=== PATIENT | male | born 1955 | race Caucasian/White ===

== ENCOUNTER 2020-04-23 11:58 | Outpatient (CLI) | payer BC ==
--- NOTE | 2020-04-23 13:55 | MRI ---
MRI cervical spine noncontrast: 04/23/2020 HISTORY: 65-year-old male with cervical radiculopathy COMPARISON: Vertebral body heights are maintained. No high-grade disc space narrowing at any level. Cervical spin al cord is normal in size and signal. No major subluxation. No high-grade facet DJD at any level. Mild Modic type I endplate marrow edema at upper C5 vertebral body. No other significant bone marrow signal abnormality. C1-2: Normal C2-3: Essentially normal C3-4: Shallow central and right paracentral small disc protrusion. Mild central spinal canal stenosis . Moderate size right uncinate process osteophytes. Small left uncinate process osteophytes. Somewhat severe right neural foraminal stenosis. Mild to moderate left neural foraminal stenosis. C4-5: Central and bilateral paracentral moderate disc protrusion or disc-osteophyte complex slightly indents ventral surface of spinal cord. Moderate central spinal canal stenosis. Moderate size bilateral uncinate process osteophytes. Severe bilateral neural foraminal stenosis. C5-6: Broad-based disc protrusion or disc-osteophyte complex, asymmetrically larger than on the right than left abuts ventral surface of spinal cord. Moderate to severe central spinal canal stenosis. Moderate size bilateral uncinate process osteophytes. Severe right and moderate left neural foraminal stenosis. C6-7: Broad-based moderate sized disc herniation. Mild ligamentum flavum thickening. Severe central s simi canal stenosis. Moderate to large right and moderate left neural foraminal stenosis. Severe bilateral neural foraminal stenosis. C7-T1: No high-grade central spinal canal stenosis. Mild to moderate bilateral neural foraminal steno sis. IMPRESSION: 1.) Multilevel severe bilateral neural foraminal stenosis. 2) otherwise, the degree of cervical spondylosis is low-grade.
== END 2020-04-23 11:59 | disposition home or self-care (01) ==
LOC: BICMRI 11:58
PROVIDERS: ATTEND Family Medicine
DX: M47.22 Other spondylosis with radiculopathy, cervical region (principal); M48.02 Spinal stenosis, cervical region
CPT/HCPCS: 72141

== ENCOUNTER 2022-10-21 08:33 | Outpatient (CLI) | payer BC, MEDICARE ==
[2022-10-21 10:52] LABS: Anion Gap 14 mmol/L (10-20); BUN (Urea Nitrogen) 11 mg/dL (8.4-25.7); Calc. Creatinine Clearance 0 mL/min (70-130); Calcium 9.7 mg/dL (7.8-10.44); Carbon Dioxide 27 mmol/L (23-31); Chloride 93 mmol/L (98-107); Estimated GFR 95; Glucose 117 mg/dL (80-115); Potassium 4.3 mmol/L (3.5-5.1); Sodium 130 mmol/L (136-145)
== END 2022-10-21 08:34 | disposition home or self-care (01) ==
LOC: LABBT 08:33
PROVIDERS: ATTEND Neurological Surgery
DX: Z01.818 Encounter for other preprocedural examination (principal); M43.16 Spondylolisthesis, lumbar region; M47.26 Other spondylosis with radiculopathy, lumbar region
CPT/HCPCS: 80048; 93005; 93010

== ENCOUNTER 2022-10-24 06:17 | Day surgery (SDC) | payer BC, MEDICARE ==
[2022-10-21 09:26] VITALS: BMI 28.0
[2022-10-24] MEDS ORDERED: HYDROmorphone 0.5 MG/0.5 ML SYRINGE ONE ×2 (08:40→11:54)
[2022-10-24] MEDS ORDERED: fentaNYL PF 100 MCG/2 ML SYRINGE ONE ×3 (08:40→12:05)
[2022-10-24] MEDS ORDERED: Midazolam HCl 2 mg/2 ml Vial ONE (08:40)
[2022-10-24] MEDS ORDERED: Bupivacaine HCl 0.5%/Epinephrine 1:200,000/PF 30 ml Vial ONE (08:43)
[2022-10-24] MEDS ORDERED: Thrombin 5000 UNITS/5 ML VIAL ONE (08:43)
[2022-10-24] MEDS ORDERED: Sodium Chloride 0.9% 100 ML ONE ×2 (08:53→13:52)
[2022-10-24] MEDS ORDERED: CEFAZOLIN 2 GM VIAL ONE ×2 (08:53→13:52)
[2022-10-24] MEDS ORDERED: Dexamethasone 20 MG/5 ML VIAL ONE (09:01)
[2022-10-24] MEDS ORDERED: PROPOFOL 200 MG/20 ML VIAL ONE (09:01)
[2022-10-24] MEDS ORDERED: Rocuronium Bromide 10 MG/ML (10ML VIAL) ONE (09:01)
[2022-10-24] MEDS ORDERED: ePHEDrine Sulfate 50 MG/10 ML VIAL ONE (09:01)
[2022-10-24] MEDS ORDERED: Ondansetron PF 4 MG/2 ML Vial ONE (09:01)
[2022-10-24] MEDS ORDERED: Lidocaine 1% PF 5 ML VIAL ONE (09:01)
[2022-10-24] MEDS ORDERED: SUGAMMADEX SODIUM 200 MG/2 ML VIAL ONE (11:17)
[2022-10-24] MEDS ORDERED: Tamsulosin HCl 0.4 MG CAP ONE (11:54)
[2022-10-24] MEDS ORDERED: Cyclobenzaprine 10 MG TAB ONE (12:56)
[2022-10-24] MEDS ORDERED: HYDROcodone/Acetaminophen 5/325 mg Tablet ONE (13:50)
== END 2022-10-24 15:15 | disposition home or self-care (01) ==
LOC: SDC 06:17
PROVIDERS: ATTEND Neurological Surgery
DX: M43.16 Spondylolisthesis, lumbar region (principal); M43.06 Spondylolysis, lumbar region
CPT/HCPCS: C1713; C1889; J1100; J1170; J2250; J2405; J2704; J3490